=== PATIENT | female | born 1985 | race African-American/Black ===

== ENCOUNTER 2023-05-08 15:02 | Emergency (ER) | payer MEDICAID ==
[~2023-05-08] VITALS: Ht 170.2 cm; Wt 102.3 kg
[2023-05-08 15:06] VITALS: BP 118/71; PULSE 74; RESP 18; TEMP 98.1
[2023-05-08] MEDS ORDERED: METF-1211 PO ×2 (15:07→15:30)
== END 2023-05-08 16:13 | disposition home or self-care (01) ==
LOC: EMS 15:12
DX: E11.9 Type 2 diabetes mellitus without complications (principal)
CPT/HCPCS: 82962; 99283

== ENCOUNTER 2025-01-31 18:03 | Emergency (ER) | payer SELFPAY ==
[~2025-01-31] VITALS: Ht 167.6 cm; Wt 104.5 kg
[~2025-01-31 18:03] MED LIST: METF-1211 PO
[2025-01-31 18:05] VITALS: BP 114/71; PULSE 124; RESP 22; TEMP 99; O2SAT 100
[2025-01-31] MEDS: HYDROCODONE/ACETAMINOPHEN 5-325 MG TABLET PO ONE ×2 (18:43→20:14)
[2025-01-31] MEDS: LIDOCAINE 1% 10 ML VIAL ID ONE (19:16)
[2025-01-31] MEDS ORDERED: IBUP-1492 PO (20:28)
[2025-01-31] MEDS ORDERED: ACET-2247 PO (20:28)
== END 2025-01-31 21:03 | disposition home or self-care (01) ==
LOC: EMS 18:40
DX: S63.284A Dislocation of proximal interphalangeal joint of right ring finger, initial encounter (principal); E11.9 Type 2 diabetes mellitus without complications; Z79.899 Other long term (current) drug therapy; W23.2XXA Caught, crushed, jammed or pinched between a moving and stationary object, initial encounter; Y93.89 Activity, other specified; Y92.89 Other specified places as the place of occurrence of the external cause; Y99.8 Other external cause status
CPT/HCPCS: 99284; 26770; 73130; J3490